=== PATIENT | female | born 2000 | race Hispanic/Latino ===

== ENCOUNTER 2019-05-14 14:12 | Emergency (ER) | payer OTHER, MEDICAID, SELFPAY ==
[2019-05-14 14:18] VITALS: BP 133/67; PULSE 80; RESP 18; TEMP 36.7; O2SAT 100; BMI 28.1
--- NOTE | 2019-05-14 14:55 | DI.US.S_ITS ---
PROCEDURE: US OB <= 14 WEEKS FETUS INDICATIONS: PELVIC PAIN OUTSIDE/PRIOR DATING DATA: Last menstrual period (LMP): 03/17/19. LMP-based estimated date of delivery (CHELSEY): 12/22/19. First dating scan (date and location): 05/14/19, this study. Estimated date of delivery (CHELSEY) from first dating scan: 12/22/19, plus or -5 days. TECHNIQUE: Real-time scanning was performed of the fetus and maternal pelvic organs, with image documentation. Endovaginal scanning was also performed to better visualize the fetus and maternal ovaries. COMPARISON: None. FINDINGS: Embryo: Single living intrauterine gestation with crown-rump length 1.8 cm correlated with a gestational age of 8 weeks 2 days with a heart rate of 171 beats per minute Measurement variability in dating: +/- 4 weeks by LMP, +/- 7 days by mean sac diameter (use before 6 weeks gestation if crown-rump length not able to be measured), +/- 5 days by crown-rump length (up to 8 weeks 6 days gestation), +/- 7 days by crown-rump length (up to 13 weeks 6 days gestation). Maternal organs: Ovaries normal considering gestational status. Limited images through the kidneys demonstrate no hydronephrosis. IMPRESSION: Early first trimester gestation, 8 week 2 day gestational age, with delivery date projected to be centered on 12/22/19+ or -5 days. Followup anatomic survey at 21 weeks gestation is recommended. Dictated by: Toño Eagle M.D. on 05/14/2019 at 16:09 Approved by: Toño Eagle M.D. on 05/14/2019 at 16:11
[2019-05-14 15:10] LABS: Add Manual Diff / Slide Review NO; Basophils Absolute Auto 0 /uL (0-100); Basophils Percent Auto 0.4 % (0-2); Eosinophils Absolute Auto 100 /uL (0-450); Hematocrit 36.4 % (36-46); Hemoglobin 12.2 g/dL (12.0-16.0); Lymphocytes Absolute Auto 1600 /uL (1100-4500); Lymphocytes Percent Auto 20.7 % (25-40); Mean Corpuscular HGB Conc 33.6 % (30-36); Mean Corpuscular Hemoglobin 29.8 PG (26-34); Mean Corpuscular Volume 88.7 fL (80-100); Monocytes Absolute Auto 800 /uL (0-900); Monocytes Percent Auto 9.7 % (3-14); Neutrophils Absolute Auto 5400 /uL (1500-7000); Neutrophils Percent Auto 68.2 % (50-75); Platelet Count 274 X10^3/uL (150-400); Red Cell Distribution Width 13.3 % (11.6-14.8)
[2019-05-14] MEDS: SODIUM CHLORIDE 0.9% 1,000 ML 1000 ML IV (15:12)
[2019-05-14 15:20] LABS: Blood Urea Nitrogen 5 mg/dL (7-17); Calcium 9.2 mg/dL (8.4-10.2); Carbon Dioxide 25 mmol/L (22-32); Chloride 103 mmol/L (98-107); Estimated Glomerular Filt Rate > 60.0 mL/min (>60); Glucose 82 mg/dL (70-100); HEMOLYSIS < 15 (0-50); Sodium 138 mmol/L (137-145)
--- NOTE | 2019-05-14 16:05 | ED_ITS ---
HPI - Weakness General Chief complaint: Weakness Stated complaint: fainting spells and vomiting Time Seen by Provider: 05/14/19 14:46 Source: patient Mode of arrival: ambulatory Limitations: no limitations History of Present Illness HPI Narrative: Patient is a 18 year female who presents after near syncopal episode this morning. She was at work when she felt extremely dizzy lightheaded she sat down she maybe passed out briefly. She states that she thinks she is about 6 weeks she plans on terminating. She has some mild abdominal discomfort no vaginal bleeding. She denies any chest pain or heart palpitation MD Complaint: generalized weakness Related Data Home Medications Medication Instructions Recorded Confirmed clobetasol 1 applic TOPICAL DIRECTED 05/14/19 05/14/19 mupirocin 1 applic TOPICAL [id number] 05/14/19 05/14/19 ondansetron 4 mg PO Q8H PRN 05/14/19 05/14/19 Previous Rx's Medication Instructions Recorded amoxicillin 500 mg PO BID 7 Days #14 cap 05/14/19 Allergies Allergy/AdvReac Type Severity Reaction Status Date / Time No Known Allergies Allergy Uncoded 05/14/19 15:03 Review of Systems Review of Systems ROS Unobtainable: All systems reviewed & are unremarkable except as noted in HPI and below Constitutional Denies chills, Denies fever(s), Denies lethargy and Denies weakness Eyes Denies change in vision, Denies eye discharge, Denies irritation and Denies loss of vision ENT Ears, Nose, Mouth, and Throat: Denies change in voice, Denies neck pain and Denies sore throat Cardiovascular Denies chest pain, Reports syncope, Denies rapid heart rate, Reports lightheadedness, Denies dyspnea and Denies dyspnea on exertion Respiratory Denies cough, Denies dyspnea, Denies dyspnea on exertion and Denies wheezing Gastrointestinal Gastrointestinal: Denies abdominal pain, Denies change in bowel habits, Denies diarrhea, Denies nausea and Denies vomiting Genitourinary Denies hematuria, Denies flank pain, Denies urinary incontinence and Denies urinary urgency Musculoskeletal Denies neck pain Integumentary/Breasts Denies pruritus, Denies erythema, Denies rash and Denies wounds Neurologic Reports syncope, Denies loss of vision and Denies weakness Allergic/Immunologic Denies wheezing [facility] Medical History Patient denies significant medical history (Acute) Social History Smoking Status: Never smoker Social History Smoking Status: Never smoker Exam Initial Vital Signs Initial Vital Signs: Vital Signs Temperature 98.1 F 05/14/19 14:18 Pulse Rate 80 05/14/19 14:18 Respiratory Rate 18 05/14/19 14:18 Blood Pressure 133/67 05/14/19 14:18 Pulse Oximetry 100 05/14/19 14:18 GENERAL: Well-appearing, well-nourished and in no acute distress. HEENT: Head atraumatic,EOMI, pupils reactive, face symmetric, moist mucous membranes CARDIOVASCULAR: Regular rate and rhythm without murmurs, rubs or gallops. RESPIRATORY: Breath sounds equal bilaterally, no wheezes rales or rhonchi. ABDOMEN: Soft, nontender. Normoactive bowel sounds all 4 quadrants. No guarding or rebound. EXTREMITIES: Normal range of motion, no clubbing or edema. Neurovascularly intact NEUROLOGICAL: Alert and oriented x4.Normal gait and speech. Cranial nerves II through XII grossly intact. SKIN: Warm, dry, no laceration, no petechiae, no rashes or lesions. Course Orders Ordered: ED Orders 05/14/19 14:55 US OB <= 14 weeks fetus Stat Basic Metabolic Panel Stat Complete Blood Count AUTO DIFF Stat 05/14/19 14:58 EKG-12 Lead Stat 05/14/19 15:40 Urine Microscopic Stat Discontinued Medications Sodium Chloride (Normal Saline 0.9%) 1,000 mls @ 1,000 mls/hr IV BOLUS ONE Stop: 05/14/19 15:54 Last Admin: 05/14/19 15:12 Dose: 1,000 mls/hr Vital Signs - 8 hr 05/14/19 14:18 05/14/19 16:30 Temperature 98.1 F Pulse Rate 80 70 Respiratory Rate 18 20 Blood Pressure 133/67 122/84 Pulse Oximetry 100 100 MDM - Weakness Lab Data Attestation: I reviewed the patient's lab results. Result diagrams: 05/14/19 14:55 05/14/19 14:55 Lab Results 05/14/19 05/14/19 05/14/19 Range/Units 14:55 14:55 15:40 WBC 8.0 (4.5-11.0) X10^3/uL RBC 4.10 (4.0-5.2) X10^6/uL Hgb 12.2 (12.0-16.0) g/dL Hct 36.4 (36-46) % MCV 88.7 (80-100) fL MCH 29.8 (26-34) PG MCHC 33.6 (30-36) % RDW 13.3 (11.6-14.8) % Plt Count 274 (150-400) X10^3/uL Neut % (Auto) 68.2 (50-75) % Lymph % (Auto) 20.7 L (25-40) % [place] % (Auto) 9.7 (3-14) % Eos % (Auto) 1.0 L (2-4) % Baso % (Auto) 0.4 (0-2) % Neut # (Auto) 5400 (8122-9159) /uL Lymph # (Auto) 1600 (2139-9398) /uL [place] # (Auto) 800 (0-900) /uL Eos # (Auto) 100 (0-450) /uL Baso # (Auto) 0 (0-100) /uL Sodium 138 (137-145) mmol/L Potassium 4.0 (3.4-5.1) mmol/L Chloride 103 (98-107) mmol/L Carbon Dioxide 25 (22-32) mmol/L BUN 5 L (7-17) mg/dL Creatinine 0.50 L (0.52-1.04) mg/dL Estimated GFR > 60.0 (>60) mL/min BUN/Creatinine Ratio 10.0 (6-22) Glucose 82 (70-100) mg/dL Calcium 9.2 (8.4-10.2) mg/dL Urine RBC 0-1/hpf (0-5/HPF) Urine WBC 1-5/hpf (0-5/HPF) Ur Squamous Epith Cells 1-5 /hpf (0-5/HPF) Urine Bacteria Few (2-10) H (None) Ur Culture Indicated? Cult not indicated Point of Care Testing Test Results Positive Urine Dip Bedside Urine Glucose Negative Bedside Urine Bilirubin - Negative Bedside Urine Ketone - Negative Urine Specific [place] 1.020 Bedside Urine Occult Blood - Negative Bedside Urine pH 7.0 Bedside Urine Protein +/- 15 Bedside Urine Urobilinogen - Negative Bedside Urine Nitrite - Negative Bedside Urine Leukocytes + 70 Esterase ECG Data Attestation: I personally reviewed and interpreted this ECG as follows: Prior ECG tracings: not available for review Interpretation: Normal sinus rhythm rate 65 year interval [address] changes T- wave inversions no priors to compare MDM Narrative Medical decision making narrative: Patient overall is feeling much better. I discussed with her her status of her . She also has a UTI which may have contributed to her near syncopal episode. She is given antibiotics IV fluids and she is eating overall feeling better. Discharge Plan Departure Patient Disposition: Home Clinical Impression: Near syncope UTI (urinary tract infection) Qualifiers: Urinary tract infection type: acute cystitis Hematuria presence: without hematuria Qualified Code(s): N30.00 - Acute cystitis without hematuria Discharge Date/Time: 05/14/19 16:30 Interventions: ED Discharge Assessment Last Done: 05/14/19 16:30 Instructions: DI for Urinary Tract Infection (UTI) Activity Restrictions/Additional Instructions: *You have been diagnosed with UTI, passing *What to do: Increased fluid intake *Continue to take medications as directed Amoxicillin 500mg PO BID x 7 days *Follow up with your primary care provider in 2-3 days *Return to ER if you should have recurrent passing, increasing abdominal pain, dizziness lightheadedness or any new, worsening or concerning symptoms Prescriptions: New amoxicillin 500 mg capsule 500 mg PO BID 7 Days Qty: 14 RF: 0 No Action clobetasol 0.05 % cream 1 applic topical DIRECTED RF: 0 mupirocin 2 % ointment 1 applic topical [id number] RF: 0 ondansetron 4 mg tablet,disintegrating 4 mg PO Q8H PRN (Reason: Nausea And Vomiting) RF: 0 Referrals: Stefany Armstrong DO [Primary Care Provider] -
--- NOTE | 2019-05-14 16:12 | PC.NURSE ---
Late entry: 1000 ml of NS infused per order.
[2019-05-14 16:21] LABS: Bacteria Urine Few (2-10); Culture Indicated Urine Cult Not Indicated; RBC Urine 0-1/HPF (0-5/HPF); Squamous Epithelial Cell Urine 1-5 /HPF (0-5/HPF); WBC Urine 1-5/HPF (0-5/HPF)
[2019-05-14 16:30] VITALS: BP 122/84; PULSE 70; RESP 20; O2SAT 100
--- NOTE | 2019-06-18 13:01 | PC.NURSE ---
Per Lisa RN, NS stop time 05/14/2019 at 1630.
== END 2019-05-14 16:30 | disposition home or self-care (01) ==
PROVIDERS: Emergency Provider Emergency Medicine; Family Provider Family Medicine; PCP Family Medicine
DX: R55 Syncope and collapse (principal); N30.00 Acute cystitis without hematuria
CPT/HCPCS: 36591; 76801; 76817; 80048; 81003; 81015; 81025; 85025; 93005; 96360; 99282; 99285

== ENCOUNTER 2020-02-13 11:11 | Emergency (ER) | payer OTHER, MEDICAID, SELFPAY ==
[2020-02-13 11:21] VITALS: BP 142/97; PULSE 85; RESP 12; TEMP 36.2; O2SAT 98
--- NOTE | 2020-02-13 11:46 | ED.NAVMDI ---
HPI - Nausea/Vomiting/Diarrhea <CASIMIRO Roa - Last Filed: 02/13/20 18:01> General Chief complaint: Nausea/Vomiting/Diarrhea Stated complaint: PUKING NOT FEELING WELL DIARRHEA Time Seen by Provider: 02/13/20 11:30 Source: patient Mode of arrival: Ambulatory Limitations: no limitations History of Present Illness HPI Narrative: The patient is a 19-year-old female nonsmoker who denies pertinent medical history who presents with a chief complaint of nausea vomiting and diarrhea was sudden onset this morning at 8:00 a.m. when she woke up. She states she vomited 4 times. She states she had a few episodes of loose stool. She took some Tums to feel better, but otherwise has not taken anything. She denies any fevers, chest pain shortness of breath. She did not eat anything unusual yesterday. She denies any dysuria urgency or frequency. She does not believe that she is . She denies any flank pain. She states she felt similar to like this a while ago, was told that she has a migraine. However this time she does not have a headache at all. The patient states she is ?feeling very emotional because she does not want to feel this way. Related Data Home Medications Medication Instructions Recorded Confirmed clobetasol 1 applic TOPICAL DIRECTED 05/14/19 05/14/19 mupirocin 1 applic TOPICAL [id number] 05/14/19 05/14/19 ondansetron 4 mg PO Q8H PRN 05/14/19 05/14/19 Previous Rx's Medication Instructions Recorded metoclopramide HCl 10 mg PO Q6H PRN #14 tab 02/13/20 ondansetron HCl 4 mg PO Q6H PRN #20 tab 02/13/20 Allergies Allergy/AdvReac Type Severity Reaction Status Date / Time No Known Drug Allergies Allergy Verified 02/13/20 12:00 Review of Systems <CASIMIRO Roa - Last Filed: 02/13/20 18:01> Review of Systems Narrative: GENERAL: Denies chills, fatigue, malaise, fever, sweats. HEENT: Denies sinus pain, ear pain, sore throat, difficulty swallowing, dizziness. RESPIRATORY: Denies dyspnea, cough, wheezing, hemoptysis, sputum. CARDIOVASCULAR: Denies chest pain, palpitations, orthopnea, edema, GASTROINTESTINAL: See HPI : Denies dysuria, frequency, incontinence, hematuria, urinary retention. MUSCULOSKELETAL: denies weakness, joint pain, or bony pain SKIN: Denies rash, skin lesions, or other NEUROLOGIC: Denies weakness, headache, numbness, change in speech, confusion, seizures, incoordination. PSYCHIATRIC: No concerning psychosocial issues. 12 point review of systems is negative except for those stated above Patient History <CASIMIRO Roa - Last Filed: 02/13/20 18:01> Medical History Patient denies significant medical history (Acute) Social History Smoking Status: Never smoker Smoking Status: Never smoker alcohol intake frequency: other Substance Use Type: does not use Exam <CASIMIRO Roa - Last Filed: 02/13/20 18:01> Narrative Exam Narrative: GENERAL: This is a well-nourished, well-developed patient, teary HEAD: Atraumatic. Normocephalic. No temporal or scalp tenderness. EYES: Pupils equal round and reactive. Extraocular motions intact. No scleral icterus. No injection or drainage. ENT: Nose without bleeding, purulent drainage or septal hematoma. Throat without erythema, tonsillar hypertrophy or exudate. Uvula midline. Airway patent. NECK: Trachea midline. No JVD or lymphadenopathy. Supple, nontender, no meningeal signs. CARDIOVASCULAR: Regular rate and rhythm RESPIRATORY: Clear to auscultation. Breath sounds equal bilaterally. No wheezes, rales, or rhonchi. GASTROINTESTINAL: Abdomen soft, non-tender, nondistended. No hepato-splenomegaly, or palpable masses. No guarding. Active bowel sounds all 4 quadrants EXTREMITIES: No clubbing, cyanosis, or edema. No joint tenderness, effusion, or edema noted. BACK: Nontender without deformity or crepitance. No flank tenderness. No CVA tenderness bilaterally NEURO: AOx3. SKIN: No rash or erythema on visible skin Initial Vital Signs Initial Vital Signs: Vital Signs Temperature 97.2 F L 02/13/20 11:21 Pulse Rate 85 02/13/20 11:21 Respiratory Rate 12 02/13/20 11:21 Blood Pressure 142/97 H 02/13/20 11:21 Pulse Oximetry 98 02/13/20 11:21 <Feliciano Obregno MD - Last Filed: 02/13/20 18:02> Initial Vital Signs Initial Vital Signs: Vital Signs Temperature 97.2 F L 02/13/20 11:21 Pulse Rate 85 02/13/20 11:21 Respiratory Rate 12 02/13/20 11:21 Blood Pressure 142/97 H 02/13/20 11:21 Pulse Oximetry 98 02/13/20 11:21 Course <CASIMIRO Roa - Last Filed: 02/13/20 18:01> Orders Ordered: ED Orders 02/13/20 11:30 Amylase Stat Complete Blood Count AUTO DIFF Stat Comprehensive Metabolic Panel Stat Lipase Stat 02/13/20 11:50 XR acute abdomen series Stat 02/13/20 12:25 Urine Microscopic Stat Discontinued Medications Sodium Chloride (Normal Saline 0.9%) 1,000 mls @ 1,000 mls/hr IV BOLUS ONE Stop: 02/13/20 12:43 Last Infusion: 02/13/20 13:27 Dose: 0 mls/hr Documented by: Admin: 02/13/20 12:02 Dose: 1,000 mls/hr Documented by: CHRISTIAN Sodium Chloride (Normal Saline 0.9%) 1,000 mls @ 1,000 mls/hr IV BOLUS ONE Stop: 02/13/20 12:44 Last Infusion: 02/13/20 14:48 Dose: 0 mls/hr Documented by: Admin: 02/13/20 13:48 Dose: 1,000 mls/hr Documented by: CHRISTIAN Metoclopramide HCl (Reglan) 10 mg IV NOW ONE Stop: 02/13/20 13:12 Last Admin: 02/13/20 13:27 Dose: 10 mg Documented by: CHRISTIAN Ondansetron HCl (Zofran) 4 mg IV NOW ONE Stop: 02/13/20 11:45 Last Admin: 02/13/20 12:02 Dose: 4 mg Documented by: CHRISTIAN Pantoprazole Sodium (Protonix) 40 mg IV NOW ONE Stop: 02/13/20 11:46 Last Admin: 02/13/20 12:02 Dose: 40 mg Documented by: CHRISTIAN Vital Signs Vital signs: Vital Signs - 8 hr 02/13/20 11:21 02/13/20 13:26 02/13/20 14:57 Temperature 97.2 F L Pulse Rate 85 78 73 Respiratory Rate 12 14 16 Blood Pressure 142/97 H Blood Pressure [Right Arm] 124/82 146/78 H Pulse Oximetry 98 100 99 02/13/20 15:04 Temperature 98.4 F Pulse Rate 80 Respiratory Rate 16 Blood Pressure Blood Pressure [Right Arm] 143/73 H Pulse Oximetry 100 <Feliciano Obregon MD - Last Filed: 02/13/20 18:02> Orders Ordered: ED Orders 02/13/20 11:30 Amylase Stat Complete Blood Count AUTO DIFF Stat Comprehensive Metabolic Panel Stat Lipase Stat 02/13/20 11:50 XR acute abdomen series Stat 02/13/20 12:25 Urine Microscopic Stat Discontinued Medications Sodium Chloride (Normal Saline 0.9%) 1,000 mls @ 1,000 mls/hr IV BOLUS ONE Stop: 02/13/20 12:43 Last Infusion: 02/13/20 13:27 Dose: 0 mls/hr Documented by: Admin: 02/13/20 12:02 Dose: 1,000 mls/hr Documented by: CHRISTIAN Sodium Chloride (Normal Saline 0.9%) 1,000 mls @ 1,000 mls/hr IV BOLUS ONE Stop: 02/13/20 12:44 Last Infusion: 02/13/20 14:48 Dose: 0 mls/hr Documented by: Admin: 02/13/20 13:48 Dose: 1,000 mls/hr Documented by: CHRISTIAN Metoclopramide HCl (Reglan) 10 mg IV NOW ONE Stop: 02/13/20 13:12 Last Admin: 02/13/20 13:27 Dose: 10 mg Documented by: CHRISTIAN Ondansetron HCl (Zofran) 4 mg IV NOW ONE Stop: 02/13/20 11:45 Last Admin: 02/13/20 12:02 Dose: 4 mg Documented by: CHRISTIAN Pantoprazole Sodium (Protonix) 40 mg IV NOW ONE Stop: 02/13/20 11:46 Last Admin: 02/13/20 12:02 Dose: 40 mg Documented by: KBROTEM Vital Signs Vital signs: Vital Signs - 8 hr 02/13/20 11:21 02/13/20 13:26 02/13/20 14:57 Temperature 97.2 F L Pulse Rate 85 78 73 Respiratory Rate 12 14 16 Blood Pressure 142/97 H Blood Pressure [Right Arm] 124/82 146/78 H Pulse Oximetry 98 100 99 02/13/20 15:04 Temperature 98.4 F Pulse Rate 80 Respiratory Rate 16 Blood Pressure Blood Pressure [Right Arm] 143/73 H Pulse Oximetry 100 MDM - Nausea/Vomiting/Diarrhea <Holli Ward, BOOKER- - Last Filed: 02/13/20 18:01> Lab Data Result diagrams: 02/13/20 11:30 02/13/20 11:30 Labs: Lab Results 02/13/20 02/13/20 02/13/20 Range/Units 11:30 11:30 12:25 WBC 11.3 H (4.5-11.0) X10^3/uL RBC 4.52 (4.0-5.2) X10^6/uL Hgb 13.3 (12.0-16.0) g/dL Hct 39.8 (36-46) % MCV 88.1 (80-100) fL MCH 29.4 (26-34) PG MCHC 33.4 (30-36) % RDW 13.1 (11.6-14.8) % Plt Count 338 (150-400) X10^3/uL Neut % (Auto) 76.8 H (50-75) % Lymph % (Auto) 16.8 L (25-40) % [place] % (Auto) 5.6 (3-14) % Eos % (Auto) 0.4 L (2-4) % Baso % (Auto) 0.4 (0-2) % Neut # (Auto) 8700 H (5078-0539) /uL Lymph # (Auto) 1900 (7313-7718) /uL [place] # (Auto) 600 (0-900) /uL Eos # (Auto) 0 (0-450) /uL Baso # (Auto) 0 (0-100) /uL Sodium 137 (137-145) mmol/L Potassium 3.8 (3.4-5.1) mmol/L Chloride 104 (98-107) mmol/L Carbon Dioxide 23 (22-32) mmol/L BUN 12 (7-17) mg/dL Creatinine 0.57 (0.52-1.04) mg/dL Estimated GFR > 60.0 (>60) mL/min BUN/Creatinine Ratio 21.1 (6-22) Glucose 112 H (70-100) mg/dL Calcium 10.0 (8.4-10.2) mg/dL Total Bilirubin 0.3 (0.2-1.3) mg/dL AST 25 (14-36) IU/L ALT 17 (<35) IU/L Alkaline Phosphatase 55 (38-126) U/L Total Protein 8.5 H (6.3-8.2) g/dL Albumin 5.0 (3.5-5.0) g/dL Globulin 3.5 (1.7-4.1) g/dL Albumin/Globulin Ratio 1.4 (1.0-2.8) Amylase 56 (30-110) U/L Lipase 59 (23-300) U/L Urine RBC 0-1/hpf (0-5/HPF) Urine WBC 0-1/hpf (0-5/HPF) Ur Squamous Epith Cells 1-5 /hpf (0-5/HPF) Urine Bacteria Few (2-10) H (None) Ur Culture Indicated? Cult not indicated Point of Care Testing Test Results Negative Urine Dip Bedside Urine Glucose Negative Bedside Urine Bilirubin - Negative Bedside Urine Ketone - Negative Urine Specific [place] 1.025 Bedside Urine Occult Blood - Negative Bedside Urine pH 7.0 Bedside Urine Protein - Negative Bedside Urine Urobilinogen - Negative Bedside Urine Nitrite - Negative Bedside Urine Leukocytes + 70 Esterase Imaging Data Abdominal x-ray: Radiologist's Impression: [address] [place] [id number] XRay Report Signed Patient: Susana Fraga#: [id number] : 2000Acct:[id number] Age/Sex: te of Service: 02/13/20 Loc: ED Accession Number: [id number] Procedure: XR acute abdomen series Ordering Provider: Holli WardBC PROCEDURE: XR ACUTE ABDOMEN SERIES INDICATIONS: abd pain, vomiting TECHNIQUE: One view chest and two views of the abdomen were acquired. COMPARISON: None. FINDINGS: Surgical changes and devices: An intrauterine contraceptive device is identified overlying the midline pelvis. Chest: Lungs are clear. Heart size is normal. No pleural effusions. No pneumoperitoneum. Abdomen: Bowel gas pattern is normal. No suspicious calcifications. Visualized solid organ contours appear normal. Bones: No suspicious bony lesions. Moderate degenerative changes of the pubis symphysis are noted. IMPRESSION: 1. No bowel obstruction. 2. No acute cardiopulmonary process. Dictated by: Denis Trevizo M.D. on 02/13/2020 at 11:19 Approved by: Denis Trevizo M.D. on 02/13/2020 at 11:20 MDM Narrative Medical decision making narrative: The patient is a 19-year-old female who presents with 2 hours of nausea vomiting and diarrhea. She felt much improved after the above-stated therapies, has reassuring lab work with no leukocytosis, normal chest abdomen x-ray. She felt much improved after the above-stated therapies was able to keep down p.o. food and fluids. She requested to go home. I discussed at length return precautions including abdominal pain with fever, inability keep down fluids any acute concerns. Encourage PCP follow-up in the next few days. Patient has no questions or concerns upon discharge and states understanding return precautions as well as follow-up care. <Feliciano Obregon MD - Last Filed: 02/13/20 18:02> Lab Data Labs: Lab Results 02/13/20 02/13/20 02/13/20 Range/Units 11:30 11:30 12:25 WBC 11.3 H (4.5-11.0) X10^3/uL RBC 4.52 (4.0-5.2) X10^6/uL Hgb 13.3 (12.0-16.0) g/dL Hct 39.8 (36-46) % MCV 88.1 (80-100) fL MCH 29.4 (26-34) PG MCHC 33.4 (30-36) % RDW 13.1 (11.6-14.8) % Plt Count 338 (150-400) X10^3/uL Neut % (Auto) 76.8 H (50-75) % Lymph % (Auto) 16.8 L (25-40) % [place] % (Auto) 5.6 (3-14) % Eos % (Auto) 0.4 L (2-4) % Baso % (Auto) 0.4 (0-2) % Neut # (Auto) 8700 H (2233-0786) /uL Lymph # (Auto) 1900 (2355-6764) /uL [place] # (Auto) 600 (0-900) /uL Eos # (Auto) 0 (0-450) /uL Baso # (Auto) 0 (0-100) /uL Sodium 137 (137-145) mmol/L Potassium 3.8 (3.4-5.1) mmol/L Chloride 104 (98-107) mmol/L Carbon Dioxide 23 (22-32) mmol/L BUN 12 (7-17) mg/dL Creatinine 0.57 (0.52-1.04) mg/dL Estimated GFR > 60.0 (>60) mL/min BUN/Creatinine Ratio 21.1 (6-22) Glucose 112 H (70-100) mg/dL Calcium 10.0 (8.4-10.2) mg/dL Total Bilirubin 0.3 (0.2-1.3) mg/dL AST 25 (14-36) IU/L ALT 17 (<35) IU/L Alkaline Phosphatase 55 (38-126) U/L Total Protein 8.5 H (6.3-8.2) g/dL Albumin 5.0 (3.5-5.0) g/dL Globulin 3.5 (1.7-4.1) g/dL Albumin/Globulin Ratio 1.4 (1.0-2.8) Amylase 56 (30-110) U/L Lipase 59 (23-300) U/L Urine RBC 0-1/hpf (0-5/HPF) Urine WBC 0-1/hpf (0-5/HPF) Ur Squamous Epith Cells 1-5 /hpf (0-5/HPF) Urine Bacteria Few (2-10) H (None) Ur Culture Indicated? Cult not indicated Point of Care Testing Test Results Negative Urine Dip Bedside Urine Glucose Negative Bedside Urine Bilirubin - Negative Bedside Urine Ketone - Negative Urine Specific [place] 1.025 Bedside Urine Occult Blood - Negative Bedside Urine pH 7.0 Bedside Urine Protein - Negative Bedside Urine Urobilinogen - Negative Bedside Urine Nitrite - Negative Bedside Urine Leukocytes + 70 Esterase Discharge Plan Departure Patient Disposition: Home Clinical Impression: Nausea, Vomiting, and Diarrhea Discharge Date/Time: 02/13/20 15:41 Instructions: DI for Abdominal Pain-Adult, DI for Nausea -- Adult, DI for Vomiting -- Adult, Nausea and Vomiting-Adult Activity Restrictions/Additional Instructions: Thank you for trusting us with your care today I sent prescriptions of the medications that help to [facility] in [facility] Please eat a simple diet, push fluids, avoid spicy food, deep fried fatty foods etcetera Please come back to the emergency department for any acute concerns such as inability keep down fluids, abdominal pain with fever etcetera Please follow-up with primary care provider in the next few days Prescriptions: New ondansetron HCl 4 mg tablet 4 mg PO Q6H PRN (Reason: nausea and vomiting) Qty: 20 RF: 0 metoclopramide HCl 10 mg tablet 10 mg PO Q6H PRN (Reason: nausea and vomiting) Qty: 14 RF: 0 No Action clobetasol 0.05 % cream 1 applic topical DIRECTED RF: 0 mupirocin 2 % ointment 1 applic topical [id number] RF: 0 ondansetron 4 mg tablet,disintegrating 4 mg PO Q8H PRN (Reason: Nausea And Vomiting) RF: 0 Referrals: Stefany Armstrong DO [Primary Care Provider] - <Feliciano Obregon MD - Last Filed: 02/13/20 18:02> [facility]: I was immediately available in the department for consultation. This documentation has been reviewed and I agree with assessment and plan. Supervised by Feliciano Obregon MD
--- NOTE | 2020-02-13 11:50 | DI.RAD.S_ITS ---
PROCEDURE: XR ACUTE ABDOMEN SERIES INDICATIONS: abd pain, vomiting TECHNIQUE: One view chest and two views of the abdomen were acquired. COMPARISON: None. FINDINGS: Surgical changes and devices: An intrauterine contraceptive device is identified overlying the midline pelvis. Chest: Lungs are clear. Heart size is normal. No pleural effusions. No pneumoperitoneum. Abdomen: Bowel gas pattern is normal. No suspicious calcifications. Visualized solid organ contours appear normal. Bones: No suspicious bony lesions. Moderate degenerative changes of the pubis symphysis are noted. IMPRESSION: 1. No bowel obstruction. 2. No acute cardiopulmonary process. Dictated by: Denis Trevizo M.D. on 02/13/2020 at 11:19 Approved by: Denis Trevizo M.D. on 02/13/2020 at 11:20
[2020-02-13 11:55] LABS: Add Manual Diff / Slide Review NO; Basophils Absolute Auto 0 /uL (0-100); Basophils Percent Auto 0.4 % (0-2); Eosinophils Absolute Auto 0 /uL (0-450); Eosinophils Percent Auto 0.4 % (2-4); Hematocrit 39.8 % (36-46); Hemoglobin 13.3 g/dL (12.0-16.0); Lymphocytes Absolute Auto 1900 /uL (1100-4500); Lymphocytes Percent Auto 16.8 % (25-40); Mean Corpuscular HGB Conc 33.4 % (30-36); Mean Corpuscular Hemoglobin 29.4 PG (26-34); Mean Corpuscular Volume 88.1 fL (80-100); Monocytes Absolute Auto 600 /uL (0-900); Monocytes Percent Auto 5.6 % (3-14); Neutrophils Absolute Auto 8700 /uL (1500-7000); Neutrophils Percent Auto 76.8 % (50-75); Platelet Count 338 X10^3/uL (150-400); Red Blood Cell Count 4.52 X10^6/uL (4.0-5.2); Red Cell Distribution Width 13.1 % (11.6-14.8); White Blood Cell Count 11.3 X10^3/uL (4.5-11.0)
[2020-02-13 11:58] LABS: Alanine Aminotransferase 17 IU/L (<35); Albumin Globulin Ratio 1.4 (1.0-2.8); Alkaline Phosphatase 55 U/L (38-126); Amylase 56 U/L (30-110); Aspartate Aminotransferase 25 IU/L (14-36); BUN Creatinine Ratio 21.1 (6-22); Bilirubin Total 0.3 mg/dL (0.2-1.3); Blood Urea Nitrogen 12 mg/dL (7-17); Carbon Dioxide 23 mmol/L (22-32); Chloride 104 mmol/L (98-107); Estimated Glomerular Filt Rate > 60.0 mL/min (>60); Globulin 3.5 g/dL (1.7-4.1); Glucose 112 mg/dL (70-100); HEMOLYSIS < 15 (0-50); Lipase 59 U/L (23-300); Potassium 3.8 mmol/L (3.4-5.1); Sodium 137 mmol/L (137-145); Total Protein 8.5 g/dL (6.3-8.2)
[2020-02-13] MEDS: SODIUM CHLORIDE 0.9% 1,000 ML 1000 ML IV ×2 (12:02→13:48)
[2020-02-13] MEDS: PANTOPRAZOLE 40 MG VIAL IV (12:02)
[2020-02-13] MEDS: ONDANSETRON 4 MG/2 ML INJ IV (12:02)
[2020-02-13 12:26] LABS: Bacteria Urine Few (2-10); Culture Indicated Urine Cult Not Indicated; RBC Urine 0-1/HPF (0-5/HPF); Squamous Epithelial Cell Urine 1-5 /HPF (0-5/HPF); WBC Urine 0-1/HPF (0-5/HPF)
[2020-02-13 13:26] VITALS: BP 124/82; PULSE 78; RESP 14; O2SAT 100
[2020-02-13] MEDS: METOCLOPRAMIDE 10 MG/2 ML INJ IV (13:27)
[2020-02-13 14:57] VITALS: BP 146/78; PULSE 73; RESP 16; O2SAT 99
[2020-02-13 15:04] VITALS: BP 143/73; PULSE 80; RESP 16; TEMP 36.9; O2SAT 100
== END 2020-02-13 15:41 | disposition home or self-care (01) ==
PROVIDERS: Emergency Provider Nurse Practitioner Family; Family Provider Family Medicine; PCP Family Medicine
DX: R11.2 Nausea with vomiting, unspecified (principal); R19.7 Diarrhea, unspecified
CPT/HCPCS: 36415; 74022; 80053; 81003; 81015; 81025; 82150; 83690; 85025; 96361; 96374; 96375; 99284; C9113; J2405; J2765

== ENCOUNTER 2021-02-08 08:13 | Emergency (ER) | payer OTHER, MEDICAID, SELFPAY ==
[2021-02-08 08:29] VITALS: BP 157/98; PULSE 74; RESP 16; TEMP 36.3; O2SAT 97; BMI 32.3
--- NOTE | 2021-02-08 08:41 | ED.NAVMDI ---
HPI - Nausea/Vomiting/Diarrhea General Chief complaint: Nausea/Vomiting/Diarrhea Stated complaint: diarrhea/fever/n&v/taking Ondansetron x5 days Time Seen by Provider: 02/08/21 08:41 Source: patient Mode of arrival: Ambulatory Limitations: no limitations History of Present Illness HPI Narrative: Patient is an otherwise healthy 20-year-old female here for evaluation of nausea vomiting and diarrhea. She states has been going on for the past 5 days. One day 2 of her symptoms she went to an outside facility where she stated that she had an IV and was given nausea medication. The initial medicine she was given was Zofran and she stated that it only helped her symptoms a small amount. She was given a 2nd medicine that she does not know what was which helped her symptoms more. She was sent home without complete resolution but she did feel better. She was given a prescription for Zofran but she could not pick it up until a couple days later because the pharmacies were closed. She has been taking that for the past couple days without any improvement. She has no abdominal pain. No blood in her stool. No recent travel. No recent antibiotics. No recent camping. She states that her fever occurs after she throws up and she describes it as a warm sensation. Related Data Home Medications Medication Instructions Recorded Confirmed clobetasol 1 applic TOPICAL DIRECTED 05/14/19 05/14/19 mupirocin 1 applic TOPICAL [id number] 05/14/19 05/14/19 ondansetron 4 mg PO Q8H PRN 05/14/19 05/14/19 Previous Rx's Medication Instructions Recorded metoclopramide HCl 10 mg PO Q6H PRN #14 tab 02/13/20 ondansetron HCl 4 mg PO Q6H PRN #20 tab 02/13/20 metoclopramide HCl [Reglan] 10 mg PO Q6H PRN #14 tab 02/08/21 Allergies Allergy/AdvReac Type Severity Reaction Status Date / Time No Known Drug Allergies Allergy Verified 02/13/20 12:00 Review of Systems Constitutional Constitutional: Reports chills, Reports fatigue, Reports fever(s) (Warm sensation after throwing up), Denies headache(s) and Reports lethargy Eyes Eyes: Denies change in vision ENT Ears, Nose, Mouth, and Throat: Denies headache(s) and Denies sore throat Cardiovascular Cardiovascular: Denies chest pain and Denies dyspnea Respiratory Respiratory: Denies dyspnea Gastrointestinal Gastrointestinal: Denies abdominal pain, Reports diarrhea, Reports nausea and Reports vomiting Genitourinary Genitourinary: Denies dysuria Genitourinary: Denies dysuria Musculoskeletal Musculoskeletal: Denies arthralgias and Denies myalgias Integumentary/Breasts Skin/Breast: Denies rash Neurologic Neurologic: Denies behavioral changes, Denies confusion and Denies headache(s) Psychiatric Psychiatric: Denies behavioral changes and Denies confusion Endocrine Endocrine: Reports fatigue Hematologic/Lymphatic On Anticoagulants: No Allergic/Immunologic Allergic/Immunologic: Denies urticaria Patient History Medical History (Updated 02/08/21 @ 10:11 by Royal Dumont DO) Patient denies significant medical history Social History Smoking Status: Never smoker Smoking Status: Never smoker alcohol intake frequency: other Substance Use Type: marijuana Exam Initial Vital Signs Initial Vital Signs: Vital Signs Temperature 97.3 F L 02/08/21 08:29 Pulse Rate 74 02/08/21 08:29 Respiratory Rate 16 02/08/21 08:29 Blood Pressure 157/98 H 02/08/21 08:29 Pulse Oximetry 97 02/08/21 08:29 Const General: cooperative, comfortable and well developed Limitations: mental status not altered HENUT Head: normal to inspection and normocephalic Eyes General: appearance normal, both eyes and all related structures Resp Effort & Inspection: normal respiratory effort Auscultation: clear to auscultation bilaterally Cardio Rate: regular rate Rhythm: regular rhythm GI Inspection: non-distended Palpation: soft, No firm and No tender General: bladder normal to palpation Bimanual Exam- Vagina & Uterus: bladder normal to palpation Skin Lesions: no lesions Rashes: no rashes Neuro General: patient alert, patient awake and patient oriented x3 Cognition: normal cognition Speech: speech normal Gait: normal gait Motor: muscle tone normal throughout Extrem General: normal to inspection and capillary refill normal Psych Appearance: grossly normal and well kempt Course Orders Ordered: ED Orders 02/08/21 08:30 Basic Metabolic Panel Stat Complete Blood Count AUTO DIFF Stat Test Serum,Qual Stat Discontinued Medications Sodium Chloride (Normal Saline 0.9%) 1,000 mls @ 1,000 mls/hr IV BOLUS ONE Stop: 02/08/21 09:49 Last Admin: 02/08/21 09:14 Dose: 1,000 mls/hr Documented by: JAYLEENONER Metoclopramide HCl (Metoclopramide 10 Mg/2 Ml Inj) 10 mg IV NOW ONE Stop: 02/08/21 08:52 Last Admin: 02/08/21 09:14 Dose: 10 mg Documented by: BTONER Vital Signs Vital signs: Vital Signs - 8 hr 02/08/21 08:29 Temperature 97.3 F L Pulse Rate 74 Respiratory Rate 16 Blood Pressure 157/98 H Pulse Oximetry 97 MDM - Nausea/Vomiting/Diarrhea Lab Data Attestation: I reviewed the patient's lab results. Result diagrams: 02/08/21 08:30 02/08/21 08:30 Labs: Lab Results 02/08/21 02/08/21 02/08/21 Range/Units 08:30 08:30 08:30 WBC 10.6 (4.5-11.0) X10^3/uL RBC 4.40 (4.0-5.2) X10^6/uL Hgb 13.0 (12.0-16.0) g/dL Hct 37.8 (36-46) % MCV 86.0 (80-100) fL MCH 29.6 (26-34) PG MCHC 34.4 (30-36) % RDW 13.1 (11.6-14.8) % Plt Count 327 (150-400) X10^3/uL Neut % (Auto) 82.9 H (50-75) % Lymph % (Auto) 12.2 L (25-40) % [place] % (Auto) 4.6 (3-14) % Eos % (Auto) 0.1 L (2-4) % Baso % (Auto) 0.2 (0-2) % Neut # (Auto) 8800 H (1010-8033) /uL Lymph # (Auto) 1300 (3428-2992) /uL [place] # (Auto) 500 (0-900) /uL Eos # (Auto) 0 (0-450) /uL Baso # (Auto) 0 (0-100) /uL Sodium 137 (137-145) mmol/L Potassium 3.3 L (3.4-5.1) mmol/L Chloride 105 (98-107) mmol/L Carbon Dioxide 24 (22-32) mmol/L BUN 9 (7-17) mg/dL Creatinine 0.57 (0.52-1.04) mg/dL Estimated GFR > 60.0 (>60) mL/min BUN/Creatinine Ratio 15.8 (6-22) Glucose 115 H (70-100) mg/dL Calcium 9.4 (8.4-10.2) mg/dL Serum , Qual Negative (Negative) MDM Narrative Medical decision making narrative: Patient reports her symptoms are vastly improved after the Reglan. She has a benign abdominal exam. Her labs are unremarkable. I feel we can hold on further workup to include a CT scan given her presentation. Will send home with prescription for Reglan. She is instructed increase her fluid intake. She was given return precautions. She expressed understanding and agreement. Discharge Plan Departure Patient Disposition: Home Clinical Impression: Nausea, Vomiting, and Diarrhea Instructions: Diarrhea, DI for Nausea -- Adult, DI for Vomiting -- Adult Activity Restrictions/Additional Instructions: I recommend that you increase your fluid intake. Contact your primary provider for a follow-up. Return to the emergency department for any new or worsening symptoms Prescriptions: New metoclopramide HCl [Reglan] 10 mg tablet 10 mg PO Q6H PRN (Reason: nausea and vomiting) Qty: 14 RF: 0 No Action clobetasol 0.05 % cream 1 applic topical DIRECTED RF: 0 mupirocin 2 % ointment 1 applic topical [id number] RF: 0 ondansetron 4 mg tablet,disintegrating 4 mg PO Q8H PRN (Reason: Nausea And Vomiting) RF: 0 ondansetron HCl 4 mg tablet 4 mg PO Q6H PRN (Reason: nausea and vomiting) Qty: 20 RF: 0 metoclopramide HCl 10 mg tablet 10 mg PO Q6H PRN (Reason: nausea and vomiting) Qty: 14 RF: 0 Referrals: Holli Booth DO [Primary Care Provider] -
[2021-02-08 09:00] LABS: Add Manual Diff / Slide Review NO; Basophils Absolute Auto 0 /uL (0-100); Basophils Percent Auto 0.2 % (0-2); Eosinophils Absolute Auto 0 /uL (0-450); Eosinophils Percent Auto 0.1 % (2-4); Hematocrit 37.8 % (36-46); Lymphocytes Absolute Auto 1300 /uL (1100-4500); Lymphocytes Percent Auto 12.2 % (25-40); Mean Corpuscular HGB Conc 34.4 % (30-36); Mean Corpuscular Hemoglobin 29.6 PG (26-34); Monocytes Absolute Auto 500 /uL (0-900); Monocytes Percent Auto 4.6 % (3-14); Neutrophils Absolute Auto 8800 /uL (1500-7000); Neutrophils Percent Auto 82.9 % (50-75); Platelet Count 327 X10^3/uL (150-400); Red Cell Distribution Width 13.1 % (11.6-14.8); White Blood Cell Count 10.6 X10^3/uL (4.5-11.0)
[2021-02-08 09:02] LABS: BUN Creatinine Ratio 15.8 (6-22); Blood Urea Nitrogen 9 mg/dL (7-17); Calcium 9.4 mg/dL (8.4-10.2); Carbon Dioxide 24 mmol/L (22-32); Chloride 105 mmol/L (98-107); Estimated Glomerular Filt Rate > 60.0 mL/min (>60); Glucose 115 mg/dL (70-100); HEMOLYSIS < 15 (0-50); Potassium 3.3 mmol/L (3.4-5.1); Sodium 137 mmol/L (137-145)
[2021-02-08 09:10] LABS: Pregnancy Test Serum,Qual Negative (Negative)
[2021-02-08] MEDS: SODIUM CHLORIDE 0.9% 1,000 ML 1000 ML IV (09:14)
[2021-02-08] MEDS: METOCLOPRAMIDE 10 MG/2 ML INJ IV (09:14)
[2021-02-08 10:30] VITALS: BP 113/66; PULSE 77; RESP 18; TEMP 36.7; O2SAT 100
[2021-02-08 10:35] VITALS: BP 110/58; PULSE 70; RESP 16; O2SAT 97
== END 2021-02-08 10:36 | disposition home or self-care (01) ==
PROVIDERS: Emergency Provider Emergency Medicine; Family Provider Family Medicine; PCP Family Medicine
DX: R11.2 Nausea with vomiting, unspecified (principal); R19.7 Diarrhea, unspecified; R50.9 Fever, unspecified
CPT/HCPCS: 36415; 80048; 84703; 85025; 96361; 96374; 99284; J2765

== ENCOUNTER 2025-10-11 19:17 | Emergency (ER) | payer OTHER, SELFPAY ==
[2025-10-11 19:40] VITALS: BP 176/111; PULSE 78; RESP 18; TEMP 37; O2SAT 99; BMI 33.4
== END 2025-10-11 21:30 | disposition left against medical advice (07) ==
PROVIDERS: Emergency Provider Student in an Organized Health Care Education/Training Program; Family Provider Family Medicine
DX: Z53.21 Procedure and treatment not carried out due to patient leaving prior to being seen by health care provider (principal)
CPT/HCPCS: 99281